=== PATIENT | male | born 1975 | race Caucasian/White ===

== ENCOUNTER → 2019-10-11 13:12 | Outpatient (BNVA) | payer OTHER, SELFPAY | PROVIDERS: PCP Family Medicine; Visit Provider Registered Nurse | DX: Z02.1 Encounter for pre-employment examination (principal) | CPT/HCPCS: 80305 ==

== ENCOUNTER → 2020-02-02 15:26 | Outpatient (BNVA) | payer SELFPAY | PROVIDERS: PCP Family Medicine; Visit Provider Nurse Practitioner | DX: I10 Essential (primary) hypertension (principal) | CPT/HCPCS: 80053; 80061; 81000; 84443; 85025 ==

== ENCOUNTER → 2020-05-15 15:49 | Outpatient (BNVA) | payer SELFPAY | PROVIDERS: PCP Family Medicine; Visit Provider Nurse Practitioner Family | DX: I95.0 Idiopathic hypotension (principal); I10 Essential (primary) hypertension; E86.0 Dehydration | CPT/HCPCS: 36416; 80053; 80061; 82962; 84443; 84484; 85025 ==

== ENCOUNTER → 2021-01-05 10:34 | Outpatient (BNVA) | payer SELFPAY | PROVIDERS: PCP Family Medicine; Visit Provider Nurse Practitioner | DX: I10 Essential (primary) hypertension (principal); N50.89 Other specified disorders of the male genital organs; E78.5 Hyperlipidemia, unspecified | CPT/HCPCS: 80053; 80061; 81000; 85025 ==

== ENCOUNTER 2021-01-12 13:47 | Outpatient (CLI) | payer SELFPAY ==
--- NOTE | 2021-01-12 14:00 | US_ITS ---
WS: [id number] TESTICULAR ULTRASOUND HISTORY: N50.89 - Other specified disorders of the male genital organs COMPARISON: None available. TECHNIQUE: Real-time and color Doppler imaging or utilized to perform a testicular ultrasound. Right testicle: 5.5 cm x 3.7 cm x 3.1 cm. Normal size and echogenicity. No mass or torsion. 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 Normal color Doppler is present throughout. Systolic and diastolic velocities are both present. Small simple hydrocele. Right epididymis: Markedly enlarged heterogeneous epididymis with increased vascularity. Left testicle: 5.3 cm x 3.4 cm x 3.1 cm. Normal size and echogenicity. No mass or torsion. Normal color Doppler is present throughout. Systolic and diastolic velocities are both present. Small simple hydrocele. Left epididymis: Mildly enlarged heterogeneous epididymis. Minimal increased vascularity. US/US scrotum [id number] IMPRESSION: 1. No testicular mass. 2. Acute RIGHT epididymitis. Minimal early changes of acute LEFT epididymitis.
== END 2021-01-12 13:48 | disposition home or self-care (01) ==
LOC: RAD 13:50
PROVIDERS: PCP Family Medicine; Visit Provider Nurse Practitioner
DX: N50.89 Other specified disorders of the male genital organs (principal); N45.1 Epididymitis
CPT/HCPCS: 76870

== ENCOUNTER 2021-05-20 08:22 | Emergency (ER) | payer SELFPAY ==
[2021-05-20 08:37] VITALS: BP 175/101; PULSE 81; RESP 22; TEMP 36.7; O2SAT 96; BMI 43.3
--- NOTE | 2021-05-20 08:44 | ED_ITS ---
HPI - Chest Pain General: Chief Complaint: Chest Pain Stated Complaint: CHEST PAINS Time Seen by Provider: 05/20/21 08:33 History of Present Illness: HPI narrative: Mr. Cuevas is a 45-year-old gentleman with a significant past medical history of hypertension, hy perlipidemia, obesity, positive family history for early cardiac who presents to the emergency department with a chief complaint of chest pain. Symptom onset was approximately 630 and described as waking up from sleep. He noted left anterior chest pain with radiation down the arm and up the neck. He tried walking around to see if that would help however it did not change his symptoms. They rate the intensity of their symptoms as moderate to severe and describe the character as discomfort. Overall the course of symptoms has been mildly improved from worse. The patient has had similar episodes in the past and has seen primary care provider however has not seen cardiology. There are no other specific exacerbating or alleviating factors reported. Patient was at his baseline health last night. Review of Systems General: Reports: 10 or more systems reviewed and unremarkable except in HPI and below Narrative: CONSTITUTIONAL: denies fever, fatigue, weakness EYES - denies pain, denies loss of vision EARS - denies ear issues. NOSE - denies congestion or rhinorrhea. THROAT - denies sore throat or difficulty swallowing. CARDIOVASCULAR -see HPI RESPIRATORY - denies shortness of breath and cough GASTROINTESTINAL - denies abdominal pain, no nausea vomiting, no changes in bowel habits GENITOURINARY - denies dysuria or urinary frequency MUSCULOSKELETAL- denies deformity or pain SKIN - denies rashes or new changed skin lesions NEUROLOGIC - denies focal weakness or sensory changes HEMATOLOGIC/LYMPHATIC - denies easy bruising or lymphadenopathy. [facility] ED PFSH: Medical History (Updated 05/20/21 @ 11:18 by Bernard Barnes MD) Dyslipidemia Hypertension Nicotine addiction Surgical History History of knee surgery Left History of shoulder surgery Right History of tonsillectomy History of tympanomastoidectomy both ears History of vasectomy Family History Other Cancer Heart disease Hypertension Denies family history of Bleeding disorder Social History Smoking and tobacco status: heavy tobacco smoker smokeless tobacco Second hand smoke exposure: No Smoking risk assessment/counseling performed?: Yes Alcohol intake: unknown Desire information about alcohol rehabilitation?: No Counseling given: No Desire information about substance/drug rehabilitation?: No Counseling given: No Adopted: No Caregiver/support person: No Lives independently: Yes Household members: children Housing: House Marital status: Current occupational status: employed History of recent travel: No Current gender identity: Male Physical Exam Narrative: EXAM NARRATIVE: GENERAL/CONSTITUTIONAL - well-appearing. No acute distress. Obese Eyes - PERRL, no conjunctival injection ENMT - Atraumatic external nose and ears. Moist mucous membranes NECK - supple. trachea midline CARDIOVASCULAR - regular rate and rhythm. Chest pain is not reproducible to palpation or other physical exam maneuvers. RESPIRATORY -clear to auscultation bilaterally. No retractions or accessory muscle use. ABDOMEN/GI - Nontender/Nondistended. No tenderness to percussion or evidence of peritonitis MSK - Extremities without obvious deformity or tenderness to palpation SKIN - Warm, Dry. No overlying skin lesions on the region of pain NEURO - alert and appropriately oriented. strength and sensation intact. Moves all extremities equally. PSYCH - Appropriate mood and affect Course ED course: - Patient was seen and evaluated by me at bedside - Patient placed on cardiac monitors, IV access obtained - Initial evaluation notable for no acute distress, not toxic appearance, patient still having mild active chest pain - Labs notable for no acute abnormality to explain patient's symptoms - Imaging notable for no acute abnormality to explain patient's symptoms - The patient's heart score is 6 and with ongoing discomfort, albeit mild, I strongly recommended that the patient be admitted for inpatient stress test and further cardiac monitoring. The patient adamantly refused admission. I reinforced the heart score methodology and risk stratification including chances of major adverse cardiac events. The patient verbalized understanding. Based on my examination and interactions with this patient he is competent to make decisions, however poor. - Return precautions, follow-up plan, and prescriptions were discussed with the patient. - Patient left the emergency department in satisfactory condition with no acute deterioration or other acute events. Vital Signs: Vital signs: Vital Signs Temperature 98.0 F 05/20/21 08:37 Pulse Rate 80 05/20/21 11:04 Respiratory Rate 18 05/20/21 11:04 Blood Pressure 159/95 05/20/21 11:04 Pulse Oximetry 96 05/20/21 10:00 MDM - Chest Pain Medical Records: Attestation: I reviewed the patient's medical records. Lab Data: Attestation: I reviewed the patient's lab results. Labs: Lab Results 05/20/21 05/20/21 05/20/21 Range/Units 08:58 08:58 08:58 WBC 7.5 (4.0-10.0) 10^3/ uL RBC 4.39 (4.1-5.3) 10^6/u L Hgb 13.8 (11.7-16.6) g/dL Hct 41.8 L (42.0-52.0) % MCV 95.2 H (80-94) fl MCH 31.4 (28.0-34.0) pg MCHC 33.0 (30.0-36.0) g/dL RDW 13.2 (12.1-15.1) % Plt Count 206 (130-400) 10^3/c mm MPV 9.7 (7.4-10.4) fL Neut % (Auto) 58.3 % Lymph % (Auto) 28.6 % [place] % (Auto) 8.4 % Eos % (Auto) 2.8 % Baso % (Auto) 0.8 % Neut # (Auto) 4.35 (1.8-7.7) 10^3/u L Lymph # (Auto) 2.1 (0.8-4.8) 10^3/u L [place] # (Auto) 0.6 (0.2-0.9) 10^3/u L Eos # (Auto) 0.2 (0.0-0.8) 10^3/u L Baso # (Auto) 0.1 (0.0-0.1) 10^3/u L Nucleated RBC % (a uto) 0 % Nucleated RBCs # 0.0 /100WBC Sodium 137 (136-145) mmol/L Potassium 4.4 (3.5-5.1) mmol/L Chloride 104 (98-107) mmol/L Carbon Dioxide 24 (22-29) mmol/L Anion Gap 13.4 (5-19) BUN 13 (6-20) mg/dL Creatinine 0.4 L (0.7-1.2) mg/dL GFR Calculation 231.6 H (90-130) mL/min Glucose 111 (65-115) mg/dL Calculated Osmolal ity 285 (285-295) mOsm/k g Calcium 9.0 (8.5-10.5) mg/dL Total Bilirubin 0.3 (0.15-1.2) mg/dL AST 15 (0-40) U/L ALT 23 (0-41) U/L Alkaline Phosphata se 68 (40-130) IU/L Troponin T Baselin e 6 (0-15) ng/L Troponin T 120 Min [place] (0-15) ng/L Delta Troponin T (0-10) ABS# NT-Pro-B Natriuret Pep 76 (0-125) pg/mL Total Protein 6.1 L (6.6-8.7) g/dL Albumin 3.8 (3.5-5.2) g/dL Globulin 2.3 (1.3-4.6) g/dL Lipase 69 H (13-60) U/L 05/20/21 Range/Units 10:52 WBC (4.0-10.0) 10^3/ uL RBC (4.1-5.3) 10^6/u L Hgb (11.7-16.6) g/dL Hct (42.0-52.0) % MCV (80-94) fl MCH (28.0-34.0) pg MCHC (30.0-36.0) g/dL RDW (12.1-15.1) % Plt Count (130-400) 10^3/c mm MPV (7.4-10.4) fL Neut % (Auto) % Lymph % (Auto) % [place] % (Auto) % Eos % (Auto) % Baso % (Auto) % Neut # (Auto) (1.8-7.7) 10^3/u L Lymph # (Auto) (0.8-4.8) 10^3/u L [place] # (Auto) (0.2-0.9) 10^3/u L Eos # (Auto) (0.0-0.8) 10^3/u L Baso # (Auto) (0.0-0.1) 10^3/u L Nucleated RBC % (a uto) % Nucleated RBCs # /100WBC Sodium (136-145) mmol/L Potassium (3.5-5.1) mmol/L Chloride (98-107) mmol/L Carbon Dioxide (22-29) mmol/L Anion Gap (5-19) BUN (6-20) mg/dL Creatinine (0.7-1.2) mg/dL GFR Calculation (90-130) mL/min Glucose (65-115) mg/dL Calculated Osmolal ity (285-295) mOsm/k g Calcium (8.5-10.5) mg/dL Total Bilirubin (0.15-1.2) mg/dL AST (0-40) U/L ALT (0-41) U/L Alkaline Phosphata se (40-130) IU/L Troponin T Baselin e (0-15) ng/L Troponin T 120 Min [place] 6.00 (0-15) ng/L Delta Troponin T 0 (0-10) ABS# NT-Pro-B Natriuret Pep (0-125) pg/mL Total Protein (6.6-8.7) g/dL Albumin (3.5-5.2) g/dL Globulin (1.3-4.6) g/dL Lipase (13-60) U/L EKG Data^: EKG 1: Attestation: I personally reviewed and interpreted this EKG as follows: EKG interpretation date: 05/20/21 EKG interpretation time: 08:42 Prior EKG tracings: not available for review Ischemic changes: non-specific ST-T wave changes Interpretation: Twelve-lead EKG shows a sinus rhythm at a rate of 80. MI interval 174. QRS duration 93. QTc 369. Normal Cassel. Nonspecific ST segment abnormalities not meeting STEMI criteria. Interpretation: Sinus rhythm. Nonspecific ST segment abnormalities. Discharge Plan Discharge Patient Disposition: Home Clinical Impression: Chest pain Condition: Stable Prescriptions: New aspirin 325 mg tablet 325 mg PO DAILY Qty: 30 RF: 0 No Action multivitamin [One-A-Day Essential] Tablet 1 tab PO DAILY RF: 0 ibuprofen 200 mg capsule 800 mg PO DAILY PRN (Reason: Pain) RF: 0 lisinopril 40 mg tablet 40 mg PO DAILY 30 Days Qty: 30 RF: 5 Discharge Orders: Discharge ED (Routine); Ordered 05/20/21 Ordered By: Bernard Barnes Referrals: Izzy Linda MD [Primary Care Provider] - Discharge Diet: Usual diet Discharge Activity: Resume usual activity Patient Instructions: Chest Pain (ED) Activity Restrictions/Additional Instructions: Thank you for visiting the emergency department. You were seen and evaluated for chest pain. The exact cause of this is somewhat unclear though given risk factors and your description of symptoms I am concerned that this is cardiac in nature. I recommend that you be admitted for inpatient stress test however you are declining this at this time. Based on previous studies you have a moderate risk probability (up to roughly 20%) of major adverse cardiac events in the next 45 days. Please follow-up with your primary care provider and cardiology for stress testing and echocardiogram. You may return to the emergency department for any reason at any time. Coding Level of Care Code ED Lead Instructor/Flight Attendant for Anirudh Gonzalez
--- NOTE | 2021-05-20 08:54 | XRR_ITS ---
PROCEDURE INFORMATION: Exam: XR Chest Exam date and time: 05/20/2021 8:54 AM Age: 45 years old Clinical indication: Pain; Chest pressure; Additional info: Chest pain TECHNIQUE: Imaging protocol: XR of the chest. Views: 1 view. Total images: 1 COMPARISON: CR Shoulder 2+ views RIGHT* [id number] 06/26/2015 4:56 PM FINDINGS: Lungs: Unremarkable. No consolidation. Pleural spaces: Unremarkable. No pleural effusion. No pneumothorax. Heart/Mediastinum: Unremarkable. No cardiomegaly. Bones/joints: Unremarkable. XR/XR chest 1V portable [id number] IMPRESSION: No acute findings.
[2021-05-20 09:02] VITALS: BP 157/93; PULSE 81; RESP 18; O2SAT 96
[2021-05-20] MEDS: aspirin 81 mg Chew Tablet 324 MG PO (09:08)
[2021-05-20 09:18] LABS: Basophils # 0.1 10^3/uL (0.0-0.1); Basophils % 0.8 %; Eosinophils # 0.2 10^3/uL (0.0-0.8); Eosinophils % 2.8 %; Hematocrit 41.8 % (42.0-52.0); Hemoglobin 13.8 g/dL (11.7-16.6); Lymphocytes # 2.1 10^3/uL (0.8-4.8); Lymphocytes % 28.6 %; Mean Corpuscular Hemoglobin 31.4 pg (28.0-34.0); Mean Corpuscular Volume 95.2 fl (80-94); Mean Platelet Volume 9.7 fL (7.4-10.4); Monocytes # 0.6 10^3/uL (0.2-0.9); Monocytes % 8.4 %; Neutrophils # 4.35 10^3/uL (1.8-7.7); Neutrophils % 58.3 %; Nucleated Red Blood Cells % 0 %; Platelet Count 206 10^3/cmm (130-400); Red Blood Count 4.39 10^6/uL (4.1-5.3); Red Cell Distribution Width 13.2 % (12.1-15.1); White Blood Count 7.5 10^3/uL (4.0-10.0)
[2021-05-20 09:44] LABS: Troponin(5th) Baseline 6 ng/L (0-15)
[2021-05-20 09:54] LABS: Alanine Aminotransferase 23 U/L (0-41); Albumin Level 3.8 g/dL (3.5-5.2); Alkaline Phosphatase 68 IU/L (40-130); Anion Gap 13.4 (5-19); Aspartate Amino Transferase 15 U/L (0-40); Blood Urea Nitrogen 13 mg/dL (6-20); Carbon Dioxide 24 mmol/L (22-29); Chloride 104 mmol/L (98-107); Globulin 2.3 g/dL (1.3-4.6); Glomerular Filtration Rate 231.6 mL/min (90-130); Glucose 111 mg/dL (65-115); Lipase 69 U/L (13-60); NT Pro B Type Natriuretic Pept 76 pg/mL (0-125); Osmolality Calculated 285 mOsm/kg (285-295); Potassium 4.4 mmol/L (3.5-5.1); Sodium 137 mmol/L (136-145); Total Bilirubin 0.3 mg/dL (0.15-1.2); Total Protein 6.1 g/dL (6.6-8.7)
[2021-05-20 10:00] VITALS: BP 160/96; PULSE 85; RESP 18; O2SAT 96
[2021-05-20 11:04] VITALS: BP 159/95; PULSE 80; RESP 18
[2021-05-20 11:31] LABS: Troponin 5 2HR Delta 0 ABS# (0-10)
--- NOTE | 2021-05-20 14:54 | ECG_ITS ---
[facility] Test Date: 2021-05-20 Pat Name: Galindo Cuevas Department: Room: Gender: Male Fitness Coach: : 1975 Requested By: Bernard Barnes Order Number: [id number] Cassi MD: Jamey Block M.D. Measurements Intervals [place] Rate: 80 P: 34 DE: 174 QRS: 31 QRSD: 93 T: 2 QT: 333 QTc: 385 Interpretive Statements SINUS RHYTHM NONSPECIFIC T-WAVE ABNORMALITY Compared to ECG 10/27/2017 23:26:51 No significant changes Electronically Signed On 05-20-2021 16:34:20 CDT by Jamey Block M.D. [id number]
--- NOTE | 2021-05-21 14:19 | DCPLANNER ---
Addendum entered by Kathrny Webber 05/22/21 10:37: operations and maintenance manager called patient, and gave patient the appointment information. Original Note: operations and maintenance manager had message to schedule a follow up appointment for patient with [facility] and an out patient stress test and echo cardiogram. operations and maintenance manager called [facility], spoke with Rosalinda, gave clinic patients information. A follow up appointment was scheduled for Friday, May 30, 2021 at 2:[address] Block. operations and maintenance manager faxed signed order for stress test and echo to centralized scheduling, who will call patient with appointment information. operations and maintenance manager called phone number [phone] this number was unavailable. operations and maintenance manager called sons number [phone], this number was also unavailable at this time.
--- NOTE | 2021-05-23 14:27 | DCPLANNER ---
Patient has an outpatient stress test scheduled for Saturday, June 19, 2021 at 9:15.
--- NOTE | 2021-05-24 10:19 | DCPLANNER ---
Patient has a follow up appointment scheduled for Saturday, June 19, 2021 at 10:15 for an outpatient echo cardiogram. Centralized scheduling will call patient with appointment information.
--- NOTE | 2021-06-22 13:31 | DCPLANNER ---
Patient had a follow up appointment scheduled for 05.30.21 with [facility] - patient did not attend appointment. Patient had an appointment scheduled for a stress test and an echo cardiogram - appointment was rescheduled.
== END 2021-05-20 11:40 | disposition home or self-care (01) ==
PROVIDERS: Emergency Provider Emergency Medicine; PCP Family Medicine
DX: R07.9 Chest pain, unspecified (principal); E78.5 Hyperlipidemia, unspecified; I10 Essential (primary) hypertension; F17.210 Nicotine dependence, cigarettes, uncomplicated
CPT/HCPCS: 71045; 80053; 83690; 83880; 84484; 85025; 93005; 99283

== ENCOUNTER 2021-07-20 07:09 | Outpatient (CLI) | payer SELFPAY ==
--- NOTE | 2021-07-20 | USCV_ITS ---
Galindo Cuevas Age: 45 Gender: M : 1975 Exam Date: 07/20/2021 07:52 Ordering Phys: Jamey Block MD ([email or web address]) Technologist: Zo Lewis [place] [facility] [place]ication: CHEST PAIN WITH NM SCAN BP: 128 / 85 HR: 71 Rhythm: Sinus Technical Quality: Adequate MEASUREMENTS (Male / Female) Normal Values 2D ECHO LV Diastolic Diameter PLAX 5.4 cm 4.2 - 5.9 / 3.9 - 5.3 cm LV Systolic Diameter PLAX 4.1 cm LV Chamber Size 3.9 cm IVS Diastolic Thickness 1.1 cm 0.6 - 1.0 / 0.6 - 0.9 cm IVS Systolic Thickness 1.7 cm LVPW Diastolic Thickness 1.5 cm 0.6 - 1.0 / 0.6 - 0.9 cm LVPW Systolic Thickness 1.5 cm RV Chamber Size 3.7 cm LVOT Diameter 2.0 cm LV Ejection Fraction 2D Teich 49.3 % LV Ejection Fraction MOD 2C 54.1 % LV Ejection Fraction 2C AL 55.2 % LA Diameter 4.4 cm LA Width 3.9 cm LA Height 4.3 cm RA Width 3.6 cm RA Height 4.4 cm Aorta at Sinotubular Diameter 3.2 cm M-MODE LV Diastolic Diameter MM 5.4 cm 4.2 - 5.9 / 3.9 - 5.3 cm LV Systolic Diameter MM 4.3 cm LV Ejection Fraction MM Teich 41.3 % IVS Diastolic Thickness MM 1.1 cm 0.6 - 1.0 / 0.6 - 0.9 cm IVS Systolic Thickness MM 1.1 cm LVPW Diastolic Thickness MM 1.5 cm 0.6 - 1.0 / 0.6 - 0.9 cm LVPW Systolic Thickness MM 1.7 cm Aortic Annulus Diameter 3.6 cm LA Ao Ratio MM 1.4 MV E Point Septal Separation 0.8 cm DOPPLER AV Peak Velocity 135.0 cm/s LVOT Peak Velocity 84.0 cm/s AV Area Cont Eq vti 2.6 cm squared AV Area Cont Eq pk 2.0 cm squared MV Area PHT 4.3 cm squared Mitral E to A Ratio 1.2 MV E' Velocity 45.0 cm/s Mitral E to MV E' Ratio 7.3 Mitral E to LV E' Lateral Ratio 7.0 Mitral E to LV E' Septal Ratio 7.6 TR Peak Velocity 142.5 cm/s TR Peak Gradient 8.1 mmHg TR Mean Velocity 107.2 cm/s TR Mean Gradient 5.3 mmHg TR Velocity Time Integral 37.9 cm TV Peak E Velocity 91.0 cm/s Right Atrial Pressure 3.0 mmHg Pulmonary Artery Systolic Pressu 11.1 mmHg PV Peak Velocity 62.0 cm/s RV Acceleration Time 0.1 s RV Ejection Time 0.3 s RV AcT/ET 0.4 FINDINGS Left Ventricle Normal left ventricular size and systolic function, EF 61 %. No regional wall motion abnormalities. Right Ventricle The right ventricle is normal in size and function. Right Atrium The right atrium is normal in size. Left Atrium The left atrium is normal in size. Mitral Valve No gross abnormalities noted Aortic Valve No gross abnormalities noted Tricuspid Valve Trace tricuspid valve regurgitation. Pulmonic Valve Pulmonic valve not well visualized. Pericardium Normal pericardium without effusion. Aorta Normal ascending aorta dimension. CONCLUSIONS Normal left ventricular size and systolic function, EF 61 %. No regional wall motion abnormalities. Trace tricuspid valve regurgitation. Estimated pulmonary artery peak systolic pressure, within normal limits No gross valvular abnormalities. No significant stenotic or regurgitant lesions. There is no pericardial effusion. There are no intracardiac masses. No previous study is available for comparison. Dr Jamey Block MD [facility] (Electronically Signed) Final Date: 20 July 2021 17:43 S
[2021-07-20 07:19] VITALS: BMI 42.5
--- NOTE | 2021-07-20 07:28 | ECG_ITS ---
[facility] Test Date: 2021-07-20 Pat Name: Galindo Cuevas Department: Room: Gender: Male Transport Company Manager: Sujata Torres : 1975 Requested By: Bernard Barnes Order Number: [id number] Ye MD: Yan Oh M.D. Interpretive Statements NAME OF STUDY: LEXISCAN SESTAMIBI STRESS TEST INDICATION: [Chest Pain, ] Procedure: At the baseline, the blood pressure was 157/91 mmHg with a heart rate of 75 bpm. The electrocardiogram showed normal sinus rhythm, normal axis with normal ST and T's. The Lexiscan was infused over a period of 20 seconds. A total of 0.4 mg of Lexiscan was infused. The stress phase was continued for a total of 5 minutes. Heart rate was at the end of stress phase was 84 bpm and a blood pressure of 154/103 mmHg. The EKG at the peak infusion revealed since normal sinus rhythm with no significant ST-T wave changes. Sestamibi was injected 20 seconds after the Lexiscan infusion. Blood pressure at the end of recovery phase was 149/106 mmHg with a heart rate of 82 bpm. Conclusion: 1. Normal EKG response to Lexiscan infusion 2. No Lexiscan induced chest pain or cardiac arrhythmia. 3. Normal blood pressure and heart rate response. 4. Sestamibi/sestamibi perfusion scan pending; see separate report. Electronically Signed On 08-13-2021 10:40:53 CHILDREN COUNSELOR by Yan Oh M.D. [id number]
--- NOTE | 2021-07-20 07:29 | NMCV_ITS ---
NM aamir perf SPECT r/s* [id number] Galindo Cuevas Age: 45 Gender: M : 1975 Exam Date: 07/20/2021 08:18 Ordering Phys: Bernard Barnes MD Technologist: MELISSA Fischer Exam Location: [facility] Indications: CHEST PAIN STRESS TEST Please see separate stress test report in [facility] for full findings IMAGE PROTOCOL Rest/Stress 1 Lexiscan Day Radiopharmaceutical Dose (mCi) Administration Site Administered by Rest: Tc-99m 10.7 IV MELISSA Child Sestamibi Stress:Tc-99m 32.9 IV MELISSA Fischer Sestamibi Rest: 20-Jul-2021 60 Discovery 630 Stress: 20-Jul-2021 30 Discovery 630 0.4mg Lexiscan. Images obtained in supine and prone position. SPECT RESULTS Technical Quality: Excellent Raw Data Analysis: Normal Image Corrections: No attenuation or motion correction applied Summed Stress Score: 3 Summed Rest Score: 7 Summed Difference Score: 1 PERFUSION FINDINGS There is a small in size, fixed perfusion defect in the mid inferior wall. 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 No evidence of ishemia FUNCTIONAL RESULTS (calculated via Gated SPECT) Stress Image LV EF (%): 45 Stress EDV (mL):171 TID: 1.04 Stress ESV (mL):94 FUNCTIONAL FINDINGS: LV systolic function is mildly reduced with EF of 45%. Mild global hypokinesis is noted IMPRESSIONS 1. Abnormal myocardial perfusion imaging with prior infarct noted in the inferior wall. 2. LV systolic function is mildly reduced Yan Oh MD (Electronically Signed) Final Date: 20 July 2021 16:42 S
[2021-07-20 09:11] VITALS: BP 136/94; PULSE 88
[2021-07-20] MEDS: regadenoson 0.4 Mg/5 ml Syringe IVP (09:13)
== END 2021-07-20 07:10 | disposition home or self-care (01) ==
LOC: CDL 07:11
PROVIDERS: PCP Nurse Practitioner; Visit Provider Emergency Medicine
DX: R06.02 Shortness of breath (principal); R07.9 Chest pain, unspecified; R94.39 Abnormal result of other cardiovascular function study; I07.1 Rheumatic tricuspid insufficiency
CPT/HCPCS: 78452; 93017; 93306; A9500; J2785